=== PATIENT | male | born 2000 | race Caucasian/White ===

== ENCOUNTER 2019-10-29 20:12 | Emergency (ER) | payer OTHER ==
[~2019-10-29] VITALS: Ht 167.6 cm; Wt 73.0 kg
[2019-10-29 20:28] VITALS: Ht 167.6 cm; Wt 73.0 kg
[2019-10-29 23:08] VITALS: BP 152/71
== END 2019-10-29 23:08 | disposition home or self-care (01) ==
LOC: ED 20:12
DX: J36 Peritonsillar abscess (principal)
CPT/HCPCS: 87804; J1100; J7620